=== PATIENT | female | born 2000 | race Caucasian/White ===

== ENCOUNTER 2019-04-13 20:33 | Emergency (ER) | payer BC ==
--- NOTE | 2019-04-13 20:40 | UC ---
Throat Pain/Nasal David HPI - HPI Summary HPI Summary: 18 yo female presents with cold symptoms. She tells me that about 3 weeks ago she had some cold symptoms consisting of a dry cough and sinus congestion. She took OTC cold medicine and symptoms improved and she felt better for a few days. Over the last week her symptoms have returned and her chest congestion is much worse. She has a productive cough and feels wheezing in her lungs. She also has sinus pain/pressure/congestion. She has been taking ibuprofen for her discomfort with mild relief. Has felt feverish, but has not taken her temperature. Denies rash, SOB, chest pain, abdominal pain, n/v. - History of Current Complaint Stated Complaint: COLD SYMPTOMS Time Seen by Provider: 04/13/19 20:40 Hx Obtained From: Patient Onset/Duration: Gradual Onset Severity: Moderate Pain Intensity: 6 Pain Scale Used: 0-10 Numeric - Allergies/Home Medications Allergies/Adverse Reactions: Allergies Allergy/AdvReac Type Severity Reaction Status Date / Time No Known Allergies Allergy Verified 04/13/19 20:54 Home Medications: Home Medications Escitalopram * [Lexapro 5 mg (NF)] 10 mg PO DAILY 04/13/19 [History Confirmed ] Ibuprofen 600 mg PO TID 04/13/19 [History Confirmed 04/13/19] SUMAtriptan SQ* [Imitrex SQ*] 1 syr INJ MONTHLY 04/13/19 [History Confirmed 08/31] PMH/Surg Hx/FS Hx/Imm Hx Neurological History: Migraine Psychological History: Anxiety, Depression - Surgical History Surgical History: None - Family History Known Family History: Positive: Non-Contributory - Social History Occupation: Student Lives: Dormitory/Roommates Alcohol Use: Occasionally Substance Use Type: None Smoking Status (MU): Never Smoked Tobacco Review of Systems All Other Systems Reviewed And Are Negative: No Constitutional: Positive: Fever, Fatigue Skin: Positive: Negative Eyes: Positive: Negative ENT: Positive: Sore Throat, Nasal Discharge, Sinus Congestion, Sinus Pain/ Tenderness Respiratory: Positive: Cough Cardiovascular: Positive: Negative Gastrointestinal: Positive: Negative Neurological: Positive: Negative Psychological: Positive: Negative Physical Exam - Summary Physical Exam Summary: GENERAL: NAD. WDWN. No pain distress. SKIN: No rashes, sores, lesions, or open wounds. HEENT: Head: AT/NC Eyes: EOM intact. Conjunctiva clear without inflammation or discharge. Ears: Hearing grossly normal. TMs intact, no bulging, erythema, or edema. Nose: Nasal mucosa pink and moist without discharge. TTP maxillary and frontal sinus. Positive post nasal drip Throat: Posterior oropharynx without exudates, erythema, or tonsillar enlargement. Uvula midline. NECK: Supple. Nontender. No lymphadenopathy. CHEST: Moderate wheezing throughout expiratory. Breathing comfortably and in no distress. CV: RRR. Pulses intact. Cap refill <2seconds NEURO: Alert. PSYCH: Age appropriate behavior. Triage Information Reviewed: Yes Vital Signs: Vital Signs: Temp Pulse Resp BP Pulse Ox 97.1 F 88 17 117/73 98 04/13/19 20:47 04/13/19 20:47 04/13/19 20:47 04/13/19 20:47 04/13/19 20:47 Vital Signs Reviewed: Yes Diagnostics - Radiology CXr Radiology Interpretation Completed By: ED Physician Summary of Radiographic Findings: No PNA Throat Pain/Nasal Course/Dx - Course Course Of Treatment: CXR wet read negative. In the clinic she was given a duoneb treatment with good improvement. Reports easier to take a deep breath and feels less congested. Lung sounds improved. Given length of symptoms will treat with anbx and albuterol inhaler at this time. - Differential Dx/Diagnosis Provider Diagnosis: Sinusitis, Bronchitis Discharge ED - Sign-Out/Discharge Documenting (check all that apply): Patient Departure All imaging exams completed and their final reports reviewed: No - Discharge Plan Condition: Stable Disposition: HOME Prescriptions: Azithromycin TAB* [Zithromax TAB (Z-ANTOINETTE) 250 mg #6 tabs] 2 tab PO .TODAY, THEN 1 DAILY #1 antoinette Patient Education Materials: Sinusitis (ED), Acute Bronchitis (ED) Forms: *School Release Referrals: No Primary Care Phys,NOPCP [Primary Care Provider] - Additional Instructions: If you develop a fever, shortness of breath, chest pain, new or worsening symptoms - please call your PCP or go to the ED immediately. - Billing Disposition and Condition Condition: STABLE Disposition: Home
[2019-04-13 20:54] VITALS: BP 117/73
[2019-04-13] MEDS ORDERED: Albuterol/Ipratropium NEB.SOL* Albuterol 2.5 MG/Ipratropium 0.5 MG 3 ML INH ONE (21:02)
[2019-04-13] MEDS ORDERED: Albuterol HFA INHALER* 8 gm MDI INH ONE (21:30)
[2019-04-13] MEDS ORDERED: Azithromycin TAB* 250 MG PO ONE (21:30)
--- NOTE | 2019-04-14 12:45 | UC ---
- Progress Note Progress Note: Patient Name: SERGIO DICKSON Medical Record#: [id number] Ordering Physician: Alex ROGER Acct.#: [id number] : 2000 Age: 18 Sex: F Location: [facility] Exam Date: 04/13/192101 ADM Status: DEP ER Order Information: CHEST PA & LAT 2 VWS Accession Number: [id number] CPT: 28877 INDICATION: Cough. COMPARISON: There are no prior studies available for comparison. TECHNIQUE: Dual-energy PA and lateral views of the chest were obtained. FINDINGS: The heart is within normal limits in size. Mediastinal and hilar contours appear within normal limits. The lungs are clear. No pleural effusion is seen. IMPRESSION: NO EVIDENCE FOR ACTIVE CARDIOPULMONARY DISEASE. R0 Preliminary Imaging Read R0 <Electronically signed by Frederick Motta MD in OV> 04/14/19725 Dictated By: Frederick Motta MD Dictated Date/Time: 04/14/19724 Transcribed Date/Time: 04/14/19724 Copy to: CC:Gabrielle Ayala MD; No Primary Care Phys,NOPCP ; Alex ROGER Imaging - [facility] Imaging - [facility] [address] [address] ph ([phone]) ph ([phone]) ph ([phone]) This report is only to be considered final once signed by the Provider(s) as displayed in the "<Electronically Signed by >" field (s). Absence of a signature indicates the report is in a draft status and still needs to be finalized. In the event this document was created by someone other than the signing Provider, the individual initiating the document will be listed in the "Entered by:" or "Dictated by:" ugarte. 1 of 1 Course/Dx - Diagnoses Provider Diagnoses: Sinusitis, Bronchitis Discharge ED - Sign-Out/Discharge Documenting (check all that apply): Post-Discharge Follow Up All imaging exams completed and their final reports reviewed: Yes - Discharge Plan Condition: Stable Disposition: HOME Prescriptions: Azithromycin TAB* [Zithromax TAB (Z-ANTOINETTE) 250 mg #6 tabs] 2 tab PO .TODAY, THEN 1 DAILY #1 antoinette Patient Education Materials: Sinusitis (ED), Acute Bronchitis (ED) Forms: *School Release Referrals: No Primary Care Phys,NOPCP [Primary Care Provider] - Additional Instructions: If you develop a fever, shortness of breath, chest pain, new or worsening symptoms - please call your PCP or go to the ED immediately. - Billing Disposition and Condition Condition: STABLE Disposition: Home
== END 2019-04-13 21:53 | disposition home or self-care (01) ==
LOC: UCEAST 20:33
DX: J32.9 Chronic sinusitis, unspecified (principal); J40 Bronchitis, not specified as acute or chronic; F32.9 Major depressive disorder, single episode, unspecified; F41.9 Anxiety disorder, unspecified; Z79.899 Other long term (current) drug therapy
CPT/HCPCS: 71046; 99202; A9270-GY; G0463

== ENCOUNTER 2019-04-25 18:10 | Emergency (ER) | payer BC ==
[2019-04-25 18:21] VITALS: BP 126/77
--- NOTE | 2019-04-25 18:44 | UC ---
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 She was seen here last week and given a Z-Jalen which she finished 3 days ago. She states she continues to have postnasal drainage and cough. Denies any history of asthma. She denies any fever or chills. - History of Current Complaint Chief Complaint: UCRespiratory Stated Complaint: CHEST CONGESTION AND COUGH Time Seen by Provider: 04/25/19 18:43 Hx Obtained From: Patient Hx Last Menstrual Period: one week ago ?: No Onset/Duration: Gradual Onset, Lasting Weeks Timing: Constant Severity Initially: Mild Severity Currently: Mild Pain Intensity: 8 Character: Cough: Nonproductive Aggravating Factors: Nothing Alleviating Factors: Bronchodilator Associated Signs And Symptoms: Positive: URI, Nasal Congestion - Allergies/Home Medications Allergies/Adverse Reactions: Allergies Allergy/AdvReac Type Severity Reaction Status Date / Time No Known Allergies Allergy Verified 04/13/19 20:54 PMH/Surg Hx/FS Hx/Imm Hx Previously Healthy: Yes - Surgical History Surgical History: None - Family History Known Family History: Positive: Non-Contributory - Social History Occupation: Student Lives: Dormitory/Roommates Alcohol Use: Occasionally Substance Use Type: None Smoking Status (MU): Never Smoked Tobacco Review of Systems All Other Systems Reviewed And Are Negative: Yes ENT: Positive: Nasal Discharge - Postnasal drainage. Respiratory: Positive: Cough - Nonproductive cough. Is Patient Immunocompromised?: No Physical Exam Triage Information Reviewed: Yes Appearance: Well-Appearing, No Pain Distress, Well-Nourished Vital Signs: Initial Vital Signs Temp 97.6 F 04/25/19 18:18 Pulse 87 04/25/19 18:18 Resp 18 04/25/19 18:18 BP 126/77 04/25/19 18:18 Pulse Ox 99 04/25/19 18:18 Vital Signs Reviewed: Yes Eyes: Positive: Conjunctiva Clear ENT: Positive: Pharynx normal - Clear postnasal drainage., Nasal congestion, Nasal drainage - Clear nasal coryza, TMs normal, Uvula midline. Negative: Sinus tenderness Neck: Positive: Supple, Nontender, No Lymphadenopathy Respiratory: Positive: No accessory muscle use, Respiratory distress, Wheezing - Patient has 1 very small expiratory wheeze mostly when she is coughing. Otherwise good air movement throughout all lung ugarte and clear to auscultation. Cardiovascular: Positive: RRR, No Murmur, Pulses Normal, Brisk Capillary Refill Musculoskeletal Exam: Normal Neurological Exam: Normal Psychological Exam: Normal Skin Exam: Normal Respiratory Course/Dx - Course Course Of Treatment: The patient is to continue her albuterol inhaler 2 puffs every 4-6 hours as needed for tight cough or wheezing. I am going to put her on 5 days of prednisone 40 mg daily. [facility] no improvement in 4 or 5 days. - Differential Dx/Diagnosis Provider Diagnosis: Bronchitis Discharge ED - Sign-Out/Discharge Documenting (check all that apply): Patient Departure All imaging exams completed and their final reports reviewed: No Studies - Discharge Plan Condition: Good Disposition: HOME Prescriptions: predniSONE TAB* [Deltasone 20 MG TAB*] 40 mg PO DAILY 5 Days #10 tab Patient Education Materials: Acute Bronchitis (ED) Referrals: No Primary Care Phys,NOPCP [Primary Care Provider] - [facility] [Outside] Additional Instructions: Increase fluids, take the prednisone with food. Definite follow-up either at the [facility] or [facility] if no improvement in 4 or 5 days. He may continue to use your albuterol inhaler 2 puffs every 4-6 hours as needed for wheezing or tight cough. - Billing Disposition and Condition Condition: GOOD Disposition: Home
== END 2019-04-25 19:00 | disposition home or self-care (01) ==
LOC: UCEAST 18:10
DX: J40 Bronchitis, not specified as acute or chronic (principal)
CPT/HCPCS: 99212; G0463

== ENCOUNTER 2019-05-17 17:19 | Emergency (ER) | payer BC ==
[2019-05-17 18:03] VITALS: BP 111/75
--- NOTE | 2019-05-17 18:55 | UC ---
Respiratory Complaint HPI - HPI Summary HPI Summary: 1 WEEK OF COUGH, CONGESTION, FATIGUE, HOARSE VOICE. HAD MILD SORE THROAT INITIALLY THAT HAS SINCE RESOLVED. SIMILAR SYMPTOMS 1 MONTH AGO AND ABOUT 3 WEEKS AGO. THE FIRST TIME WAS TREATED WITH AZITHROMYCIN. THE SECOND TIME WAS TREATED WITH PREDNISONE. BOTH TIMES SHE FELT SHE IMPROVED AND THEN SYMPTOMS RECURRED. IS A COLLEGE STUDENT. - History of Current Complaint Chief Complaint: UCRespiratory Stated Complaint: SORE THROAT, COUGH Time Seen by Provider: 05/17/19 18:42 Hx Obtained From: Patient Hx Last Menstrual Period: 05/16/19 Onset/Duration: Gradual Onset, Lasting Days, Still Present Timing: Constant Severity Initially: Moderate Severity Currently: Moderate Pain Intensity: 8 Pain Scale Used: 0-10 Numeric Character: Cough: Nonproductive Aggravating Factors: Nothing Alleviating Factors: Nothing Associated Signs And Symptoms: Positive: URI, Nasal Congestion, Hoarseness. Negative: Dyspnea, Fever, Wheezing - Allergies/Home Medications Allergies/Adverse Reactions: Allergies Allergy/AdvReac Type Severity Reaction Status Date / Time No Known Allergies Allergy Verified 05/17/19 18:03 PMH/Surg Hx/FS Hx/Imm Hx Neurological History: Migraine - Surgical History Surgical History: None - Family History Known Family History: Positive: Non-Contributory - Social History Alcohol Use: Occasionally Substance Use Type: Marijuana Substance Use Comment - Amount & Last Used: occasionally Smoking Status (MU): Never Smoked Tobacco Review of Systems All Other Systems Reviewed And Are Negative: Yes Constitutional: Positive: Fatigue ENT: Positive: Sore Throat, Nasal Discharge Respiratory: Positive: Cough Cardiovascular: Positive: Negative Gastrointestinal: Positive: Negative Physical Exam Triage Information Reviewed: Yes Appearance: Well-Appearing, No Pain Distress, Well-Nourished Vital Signs: Initial Vital Signs Temp 98.7 F 05/17/19 17:55 Pulse 81 05/17/19 17:55 Resp 16 05/17/19 17:55 BP 111/75 05/17/19 17:55 Pulse Ox 99 05/17/19 17:55 Laboratory Tests 05/17/19 19:00 Group A Strep Rapid Negative Eyes: Positive: Conjunctiva Clear ENT: Positive: Hearing grossly normal, Pharynx normal, TMs normal, Hoarse voice Neck: Positive: Supple, Nontender, No Lymphadenopathy Respiratory Exam: Normal Cardiovascular Exam: Normal Abdomen Description: Positive: Soft Musculoskeletal: Positive: No Edema Neurological: Positive: Alert Psychological: Positive: Age Appropriate Behavior Skin: Negative: Rashes Respiratory Course/Dx - Differential Dx/Diagnosis Provider Diagnosis: Acute bronchitis Discharge ED - Sign-Out/Discharge Documenting (check all that apply): Patient Departure All imaging exams completed and their final reports reviewed: No Studies - Discharge Plan Condition: Stable Disposition: HOME Prescriptions: Albuterol HFA INHALER* [Ventolin HFA Inhaler*] 2 puff INH Q4H PRN #1 mdi PRN Reason: Shortness Of Breath Codeine Phosphate/Guaifenesin [Codeine-Guaifen 10-100 mg/5 ml] 5 - 10 ml PO Q6H PRN #150 ml MDD 40ML PRN Reason: Cough predniSONE TAB* [Deltasone TAB*] 50 mg PO DAILY #5 tab Patient Education Materials: Laryngitis (ED), Acute Bronchitis (ED) Referrals: [facility] @ [Outside] - If Needed Additional Instructions: YOUR SYMPTOMS ARE LIKELY VIRALLY MEDIATED AND SHOULD RESOLVE ON THEIR OWN WITH TIME. NO INDICATION FOR ANTIBIOTICS AT PRESENT. REST, HYDRATE, OTC MEDS NEEDED. WILL TREAT WITH PREDNISONE TO HELP WITH AIRWAY INFLAMMATION AND COUGH MEDICINE. ALBUTEROL REFILLED. SEEK FOLLOW-UP IF YOU ARE NOT IMPROVING OVER THE NEXT 1-2 WEEKS. USE OTC AFRIN FOR NASAL CONGESTION. 2 SPRAYS IN EACH NOSTRIL TWICE DAILY NEEDED. DO NOT USE FOR MORE THAN 3-4 DAYS IN A ROW TO PREVENT DEVELOPING REBOUND CONGESTION. - Billing Disposition and Condition Condition: STABLE Disposition: Home
== END 2019-05-17 19:57 | disposition home or self-care (01) ==
LOC: UCEAST 17:19
DX: J20.9 Acute bronchitis, unspecified (principal); R09.81 Nasal congestion; R09.89 Other specified symptoms and signs involving the circulatory and respiratory systems
CPT/HCPCS: 71046; 87651; 99212; G0463